=== PATIENT | female | born 1960 | race Caucasian/White ===

== ENCOUNTER 2018-06-07 23:06 | Emergency (ER) | payer OTHER, MEDICAID ==
[~2018-06-07] VITALS: Ht 165.1 cm; Wt 77.1 kg
[~2018-06-07 23:06] MED LIST: AMITRIPTYLINE H25 M2; DELTASONE20 MG PO; HYDROXYZINE HCL25 M1 PO; MEDROLDOSEPACK PO; NORCO 5-325 TA1 EACH PO; OMEPRAZOLE 20 M20 MG PO; PREMARIN1.25 MG; TRIAMCINOLONE A80 G2 TOP; ZPAK PO
[2018-06-07 23:25] VITALS: BP 181/110
[2018-06-07] MEDS ORDERED: AUGMENTIN 875-1 EACH PO (23:35)
[2018-06-07] MEDS ORDERED: NORCO 7.5-3251 EACH PO (23:35)
== END 2018-06-07 23:55 | disposition home or self-care (01) ==
LOC: M.ERS 23:06
DX: H92.01 Otalgia, right ear (principal); K74.60 Unspecified cirrhosis of liver; F17.210 Nicotine dependence, cigarettes, uncomplicated; Z88.1 Allergy status to other antibiotic agents; Z88.2 Allergy status to sulfonamides; Z86.19 Personal history of other infectious and parasitic diseases